=== PATIENT | male | born 1955 | race Caucasian/White ===

== ENCOUNTER 2016-10-04 01:44 | Inpatient (IN) | payer MEDICAID ==
[~2016-10-04] VITALS: Ht 180.3 cm; Wt 80.0 kg
[2016-10-04] MEDS ORDERED: OMNIPAQUE 350 MG/ML, 100ML BOTTLE ONE (02:15)
[2016-10-04] MEDS ORDERED: HYDROmorphone 1 MG/ML, 1ML ONE (02:25)
[2016-10-04] MEDS ORDERED: ONDANSETRON 2MG/ML, 2ML ONE (02:25)
[2016-10-04] MEDS ORDERED: ONDANSETRON 2MG/ML, 2ML IVPush ONE (02:30)
[2016-10-04] MEDS ORDERED: SODIUM CHLORIDE FLUSH 10ML SYR IVF ONE (02:30)
[2016-10-04] MEDS ORDERED: SODIUM CHLORIDE 0.9% 1,000ML IVBOLUS ONE ×2 (02:30→04:30)
[2016-10-04] MEDS ORDERED: HYDROmorphone 1 MG/ML, 1ML IVPush PRN (02:30)
[2016-10-04 02:42] LABS: ASPARTATE AMINO TRANSFERASE 24 U/L (15-37); BLOOD UREA NITROGEN 14 mg/dL (7-18)
[2016-10-04] MEDS ORDERED: SODIUM CHLORIDE 0.9% 1,000 ML IV ONE (04:13)
[2016-10-04] MEDS ORDERED: MORPHINE SULFATE 4 MG/ML, 1ML IVPush PRN (04:30)
[2016-10-04] MEDS ORDERED: ONDANSETRON 2MG/ML, 2ML IVPush PRN (04:30)
[2016-10-04] MEDS ORDERED: SODIUM CHLORIDE 0.9% 1,000 ML IV SCH (04:58)
[2016-10-04] MEDS ORDERED: POLYETHYLENE GLYCOL 17 GM PACKET PO PRN (05:00)
[2016-10-04] MEDS ORDERED: BISACODYL 10 MG SUPP PR PRN (05:00)
[2016-10-04] MEDS ORDERED: DOCUSATE 100 MG CAPSULE PO PRN (05:00)
[2016-10-04] MEDS ORDERED: TRAZODONE 50MG TABLET PO PRN (05:00)
[2016-10-04] MEDS ORDERED: LABETALOL 5MG/ML, 20ML IVPush PRN (05:00)
[2016-10-04] MEDS ORDERED: HYDROcodone/APAP 5/325 TABLET PO PRN (05:00)
[2016-10-04] MEDS ORDERED: ACETAMINOPHEN 325 MG TABLET PO PRN (05:00)
[2016-10-04 07:02] VITALS: BP 129/65
[2016-10-04] MEDS: HYDROmorphone 1 MG/ML, 1ML IV PRN ×5 (07:52→22:56)
[2016-10-04] MEDS: POTASSIUM CHLORIDE 20 MEQ in LACTATED RINGERS 1,000 ML IV SCH ×4 (09:34→22:56)
[2016-10-04] MEDS: ENOXAPARIN 40 MG/0.4 ML SQ SCH (09:40)
[2016-10-04] MEDS: FAMOTIDINE 20 MG TABLET PO SCH ×2 (09:40→21:00)
[2016-10-04 12:37] VITALS: BP 133/79
[2016-10-04] MEDS: ONDANSETRON ODT 4 MG PO PRN ×2 (14:53→22:56)
[2016-10-04 19:01] VITALS: BP 141/78
[2016-10-05] MEDS: HYDROmorphone 1 MG/ML, 1ML IV PRN ×3 (02:04→08:26)
[2016-10-05 03:26] VITALS: BP 150/73
[2016-10-05 05:49] LABS: BLOOD UREA NITROGEN 10 mg/dL (7-18)
[2016-10-05 05:54] LABS: ASPARTATE AMINO TRANSFERASE 104 U/L (15-37)
[2016-10-05] MEDS: POTASSIUM CHLORIDE 20 MEQ in LACTATED RINGERS 1,000 ML IV SCH (06:02)
[2016-10-05 06:58] VITALS: BP 144/73
[2016-10-05] MEDS: FAMOTIDINE 20 MG TABLET PO SCH ×2 (08:26→19:55)
[2016-10-05] MEDS: ENOXAPARIN 40 MG/0.4 ML SQ SCH (08:26)
[2016-10-05] MEDS: LACTATED RINGERS 1,000 ML IV SCH ×2 (11:06→19:59)
[2016-10-05 12:15] VITALS: BP 139/71
[2016-10-05] MEDS ORDERED: DOCUSATE 100 MG CAPSULE PO PRN (14:30)
[2016-10-05] MEDS ORDERED: ACETAMINOPHEN 325 MG TABLET PO PRN (14:30)
[2016-10-05] MEDS ORDERED: BISACODYL 10 MG SUPP PR PRN (14:30)
[2016-10-05] MEDS ORDERED: TRAZODONE 50MG TABLET PO PRN (14:30)
[2016-10-05 19:49] VITALS: BP 131/68
[2016-10-05 20:16] VITALS: BP 131/68
[2016-10-06 01:22] VITALS: BP 124/67
[2016-10-06 01:42] VITALS: BP 124/62
[2016-10-06 05:20] LABS: BLOOD UREA NITROGEN 7 mg/dL (7-18)
[2016-10-06 05:26] LABS: ASPARTATE AMINO TRANSFERASE 48 U/L (15-37)
[2016-10-06] MEDS: LACTATED RINGERS 1,000 ML IV SCH (05:50)
[2016-10-06 07:15] VITALS: BP 151/76
[2016-10-06] MEDS: FAMOTIDINE 20 MG TABLET PO SCH ×2 (08:01→20:54)
[2016-10-06] MEDS: ENOXAPARIN 40 MG/0.4 ML SQ SCH (08:01)
[2016-10-06 12:27] VITALS: BP 153/80
[2016-10-06 19:36] VITALS: BP 149/78
[2016-10-06 19:59] VITALS: BP 149/78
[2016-10-07 03:10] VITALS: BP 141/72
[2016-10-07 05:42] LABS: BLOOD UREA NITROGEN 11 mg/dL (7-18)
[2016-10-07 05:46] LABS: ASPARTATE AMINO TRANSFERASE 31 U/L (15-37)
[2016-10-07 07:37] VITALS: BP 144/79
[2016-10-07] MEDS: FAMOTIDINE 20 MG TABLET PO SCH (08:40)
[2016-10-07] MEDS: ENOXAPARIN 40 MG/0.4 ML SQ SCH (08:40)
[2016-10-07 10:44] LABS: HEPATITIS C VIRUS ANTIBODY Nonreactive (Nonreactive)
[2016-10-07 12:37] VITALS: BP 126/75
== END 2016-10-07 15:35 | disposition home or self-care (01) | DRG 439 ==
LOC: ED 03:42 → EDIP 04:13 → 4EST 05:28 → 3NE 23:25 → DCLOUNGE 10-07 15:31
PROVIDERS: ADMIT Internal Medicine
DX: K85.90 Acute pancreatitis without necrosis or infection, unspecified (principal); R65.10 Systemic inflammatory response syndrome (SIRS) of non-infectious origin without acute organ dysfunction; Z88.5 Allergy status to narcotic agent; Z80.9 Family history of malignant neoplasm, unspecified; Z90.49 Acquired absence of other specified parts of digestive tract; R74.0 Nonspecific elevation of levels of transaminase and lactic acid dehydrogenase [LDH]; R73.09 Other abnormal glucose; K86.1 Other chronic pancreatitis
CPT/HCPCS: 36415; 74177; 74181; 80053; 80061; 80074; 80307; 81003; 81223; 81404; 82103; 83036; 83690; 84439; 84443; 85025; 93005; 96361; 96374; 96375; J1170; J1650; J2405; J3480; Q0162; Q9967; J7030; J7120